=== PATIENT | male | born 2000 | race African-American/Black ===

== ENCOUNTER 2022-06-20 20:46 | Emergency (ER) | payer SELFPAY ==
[~2022-06-20] VITALS: Ht 170.2 cm; Wt 61.4 kg
[~2022-06-20 20:46] MED LIST: ACET-784 PO
[2022-06-20 22:48] VITALS: BP 120/91
[2022-06-20] MEDS ORDERED: SULF-261 PO (22:56)
== END 2022-06-20 23:29 | disposition home or self-care (01) ==
LOC: EMS 20:51
DX: L03.113 Cellulitis of right upper limb (principal)
CPT/HCPCS: 99283; Z7502

== ENCOUNTER 2023-01-31 15:26 | Emergency (ER) | payer MEDICAID ==
[~2023-01-31] VITALS: Ht 170.2 cm; Wt 59.1 kg
[~2023-01-31 15:26] MED LIST changes: +SULF-261 PO
[2023-01-31 17:48] LABS: BASOPHILS % (AUTO) 0.5 % (0.0-2.0); HEMATOCRIT 41.5 % (41-53); HEMOGLOBIN 13.5 g/dL (13.5-17.5); LYMPHOCYTES # (AUTO) 2.1 K/uL (1.0-4.8); LYMPHOCYTES % (AUTO) 23.9 % (22.0-44.0); MEAN CORPUSCULAR HEMOGLOBIN 28.3 pg (26.0-34.0); MEAN CORPUSCULAR HGB CONC 32.5 G/dL (31.0-37.0); MEAN CORPUSCULAR VOLUME 87 fL (80-100); MONOCYTES # (AUTO) 0.8 K/uL (0.1-1.0); MONOCYTES % (AUTO) 9.2 % (2.0-9.0); NEUTROPHILS # (AUTO) 5.9 K/uL (1.8-7.7); NEUTROPHILS % (AUTO) 65.4 % (40.0-70.0); PLATELET COUNT (AUTO) 267 K/uL (150-450); RED BLOOD CELL COUNT(AUTO) 4.77 MIL/uL (4.50-5.90); RED CELL DISTRIBUTION WIDTH 13.1 % (11.5-14.5)
[2023-01-31 18:03] LABS: ANION GAP 10 mmol/L (8-16); CALCIUM, TOTAL 8.9 mg/dL (8.8-10.5); CARBON DIOXIDE 28 mmol/L (22-29); CHLORIDE 98 mmol/L (98-107); CREATININE 0.89 mg/dL (0.60-1.30); GLOMERULAR FILTR. RATE CALC > 60 mL/min (>60); GLUCOSE,RANDOM 129 mg/dL (70-110); POTASSIUM 3.2 mmol/L (3.5-5.1); SODIUM SERUM 135 mmol/L (136-145); UREA NITROGEN, BLOOD 10 mg/dL (7-18)
[2023-01-31 18:08] LABS: ALANINE AMINOTRANSFERASE 24 U/L (12-78); ALBUMIN 3.9 g/dL (3.4-5.0); ALCOHOL, BLOOD (SERUM) < 3 mg/dL (0-10); ALKALINE PHOSPHATASE 75 U/L (46-116); ASPARTATE AMINOTRANSFERASE 21 U/L (15-37); BILIRUBIN,TOTAL 0.6 mg/dL (0.1-1.0); TOTAL PROTEIN, SERUM 7.4 g/dL (6.4-8.2)
[2023-01-31 18:25] LABS: ALCOHOL, URINE DRUG SCREEN NEGATIVE (NEGATIVE); AMPHET/METH SCREEN,URINE NEGATIVE (NEGATIVE); BARBITURATE SCREEN, URINE NEGATIVE (NEGATIVE); BENZODIAZEPINES SCREEN,URINE NEGATIVE (NEGATIVE); CANNABINOID SCREEN,URINE POSITIVE (NEGATIVE); COCAINE SCREEN,URINE NEGATIVE (NEGATIVE); METHADONE SCREEN, URINE NEGATIVE (NEGATIVE); OPIATE SCREEN,URINE NEGATIVE (NEGATIVE); PHENCYCLIDINE SCREEN,URINE NEGATIVE (NEGATIVE)
[2023-01-31] MEDS ORDERED: LORA-1000 PO (18:35)
[2023-01-31] MEDS ORDERED: LORazepam 1 MG TABLET PO ONE (18:45)
[2023-01-31] MEDS ORDERED: POTASSIUM CHLORIDE 10% 40 MEQ/30 ML LIQUID UDCUP PO ONE (18:45)
[2023-01-31 19:52] VITALS: BP 128/88; PULSE 80; RESP 16; TEMP 98.2
== END 2023-01-31 19:54 | disposition home or self-care (01) ==
LOC: EMS 15:27
DX: F32.A Depression, unspecified (principal); F41.9 Anxiety disorder, unspecified; E87.6 Hypokalemia; F17.210 Nicotine dependence, cigarettes, uncomplicated
CPT/HCPCS: 80053; 80307; 85025; 99284; G0480

== ENCOUNTER 2023-02-14 05:07 | Emergency (ER) | payer MEDICAID ==
[~2023-02-14] VITALS: Ht 170.2 cm; Wt 54.5 kg
[~2023-02-14 05:07] MED LIST changes: -ACET-784 PO; +LORA-1000 PO; -SULF-261 PO
[2023-02-14 05:16] VITALS: TEMP 98.6
[2023-02-14 05:48] LABS: BASOPHILS % (AUTO) 0.7 % (0.0-2.0); EOSINOPHILS % (AUTO) 2.8 % (1.0-6.0); HEMATOCRIT 42.7 % (41-53); LYMPHOCYTES # (AUTO) 1.4 K/uL (1.0-4.8); MEAN CORPUSCULAR HEMOGLOBIN 28.9 pg (26.0-34.0); MEAN CORPUSCULAR HGB CONC 32.7 G/dL (31.0-37.0); MEAN CORPUSCULAR VOLUME 88 fL (80-100); MONOCYTES # (AUTO) 0.6 K/uL (0.1-1.0); MONOCYTES % (AUTO) 11.2 % (2.0-9.0); NEUTROPHILS # (AUTO) 3.2 K/uL (1.8-7.7); NEUTROPHILS % (AUTO) 59.3 % (40.0-70.0); PLATELET COUNT (AUTO) 287 K/uL (150-450); RED BLOOD CELL COUNT(AUTO) 4.83 MIL/uL (4.50-5.90); RED CELL DISTRIBUTION WIDTH 13.2 % (11.5-14.5); WHITE BLOOD COUNT (AUTO) 5.4 K/uL (4.5-11.0)
[2023-02-14 05:57] LABS: ANION GAP 5 mmol/L (8-16); CALCIUM, TOTAL 9.1 mg/dL (8.8-10.5); CARBON DIOXIDE 32 mmol/L (22-29); CHLORIDE 104 mmol/L (98-107); CREATININE 0.91 mg/dL (0.60-1.30); GLOMERULAR FILTR. RATE CALC > 60 mL/min (>60); GLUCOSE,RANDOM 95 mg/dL (70-110); POTASSIUM 3.9 mmol/L (3.5-5.1); SODIUM SERUM 141 mmol/L (136-145); UREA NITROGEN, BLOOD 10 mg/dL (7-18)
[2023-02-14 06:01] LABS: ALCOHOL, BLOOD (SERUM) < 3 mg/dL (0-10)
[2023-02-14 06:05] LABS: ALANINE AMINOTRANSFERASE 26 U/L (12-78); ALBUMIN 3.5 g/dL (3.4-5.0); ALKALINE PHOSPHATASE 70 U/L (46-116); ASPARTATE AMINOTRANSFERASE 19 U/L (15-37); BILIRUBIN,TOTAL 0.5 mg/dL (0.1-1.0); TOTAL PROTEIN, SERUM 6.8 g/dL (6.4-8.2)
[2023-02-14] MEDS ORDERED: HydrOXYzine PAMOATE 50 MG CAPSULE PO ONE (06:15)
[2023-02-14 08:56] LABS: COVID AG,FIA SOURCE NASOPHARYNGEAL
[2023-02-14 09:14] LABS: SARS-COV2 (COVID) ANTIGEN,FIA Negative (Negative)
[2023-02-14 09:28] VITALS: BP 107/67; PULSE 62; RESP 16
== END 2023-02-14 09:33 | disposition home or self-care (01) ==
LOC: EMS 05:08
DX: F32.A Depression, unspecified (principal); F41.9 Anxiety disorder, unspecified; F17.210 Nicotine dependence, cigarettes, uncomplicated; Z20.822 Contact with and (suspected) exposure to COVID-19
CPT/HCPCS: 99284; 87426; 80053; 85025; 36415; G0480

== ENCOUNTER 2023-10-08 20:02 | Emergency (ER) | payer SELFPAY ==
[~2023-10-08] VITALS: Ht 170.2 cm; Wt 59.1 kg
[2023-10-08 20:16] VITALS: BP 161/82; PULSE 64; RESP 16; TEMP 98.8
[2023-10-08] MEDS ORDERED: ACET-66 PO (23:02)
[2023-10-08] MEDS ORDERED: IBUP-1554 PO (23:02)
[2023-10-08] MEDS: ACETAMINOPHEN 500 MG TABLET PO ONE (23:13)
[2023-10-08] MEDS: IBUPROFEN 600 MG TABLET PO ONE (23:14)
== END 2023-10-08 23:19 | disposition home or self-care (01) ==
LOC: EMS 20:06
DX: J02.8 Acute pharyngitis due to other specified organisms (principal); F41.9 Anxiety disorder, unspecified; F32.A Depression, unspecified; F12.90 Cannabis use, unspecified, uncomplicated
CPT/HCPCS: 87430; 99283